=== PATIENT | female | born 2000 | race Hispanic/Latino ===

== ENCOUNTER 2020-10-06 09:49 | Outpatient (CLI) | payer OTHER, SELFPAY ==
[2020-10-06 10:33] LABS: Basophils Percent Auto 0.4 % (0.2-1.2); Eosinophils Percent Auto 0.4 % (0-4.4); Hematocrit 37.5 % (37.0-47.0); Hemoglobin 13.1 g/dL (12.0-15.0); Immature Granulocyte Absolute 0.03 K/mm3 (0.00-0.031); Immature Granulocyte Percent A 0.4 % (0-0.5); Lymphocytes Absolute Auto 1.31 K/mm3 (0.9-3.2); Lymphocytes Percent Auto 16.4 % (18.3-44.2); Mean Corpuscular HGB Conc 34.9 g/dl (32-36); Mean Corpuscular Hemoglobin 30.7 pg (26-34); Mean Corpuscular Volume 87.8 fl (80-100); Mean Platelet Volume 10.7 fl (7.4-10.4); Monocytes Absolute Auto 0.5 K/mm3 (0.1-0.6); Monocytes Percent Auto 6.8 % (2.6-8.5); Neutrophils Absolute Auto 6.1 K/mm3 (1.3-6.7); Neutrophils Percent Auto 75.6 % (45.5-73.1); Platelet Count Result 200 k/mm3 (150-375); Red Blood Count 4.27 M/mm3 (4.2-5.4); Red Cell Distribution Width 13.5 % (11.5-14.5)
[2020-10-06 11:25] LABS: HIV 1/2 Ab P24 Ag Result Negative (Negative); Hemoglobin A1C 4.9 % (<5.7)
[2020-10-06 11:56] LABS: Hepatitis B Surface Antigen Negative (Negative); Rubella IgG Antibody 2.3 IU/ML
[2020-10-06 12:05] LABS: Hepatitis C Virus Antibody Negative (Negative)
[2020-10-07 11:36] LABS: Rapid Plasma Reagin Non-Reactive (NonReactive)
== END 2020-10-06 09:50 | disposition home or self-care (01) ==
PROVIDERS: Visit Provider Obstetrics & Gynecology
DX: Z36.89 Encounter for other specified antenatal screening (principal); Z3A.00 Weeks of gestation of pregnancy not specified
CPT/HCPCS: 36415; 83036; 85025; 86592; 86703; 86762; 86803; 86850; 86900; 86901; 87340; G0432

== ENCOUNTER 2021-01-29 03:13 | Observation (INO) | payer OTHER, SELFPAY ==
[2021-01-29 03:01] VITALS: BP 99/60; PULSE 73; RESP 18; TEMP 36.2; O2SAT 100
--- NOTE | 2021-01-29 03:13 | PC.NURSE ---
Patient sent to OB via wheelchair
[2021-01-29 03:26] VITALS: BP 95/53; PULSE 82
[2021-01-29 03:30] VITALS: BP 94/45; PULSE 74
[2021-01-29 03:35] VITALS: RESP 18; TEMP 36.6
[2021-01-29 04:00] VITALS: BP 91/48; PULSE 76
[2021-01-29 04:10] VITALS: BMI 28.4
--- NOTE | 2021-01-29 04:10 | OBADM ---
This patient, Asiya Sullivan, admitted to the OB room [facility] for observation. Patient/family oriented to hospital policies and general routines including ID bracelet, bed and alarms, visiting hours, pain management, procedures, bathroom and other care routines, personal items, smoking policy, room service/diet, and visiting hours. Patient/Family are encouraged to report perceived risks to care and to ask questions if they do not understand what they are told or what they should do.
[2021-01-29 04:16] LABS: Add Urine Microscopic? YES; Appearance Urine Cloudy (Clear); Bacteria Urine Trace /hpf; Bilirubin Urine Negative (Negative); Blood Urine Negative (Negative); Color Urine Yellow (Yellow); Glucose Urine UA Negative (Negative); Ketones Urine Negative (Negative); Leukocyte Esterase Ur Negative LEU/UL (Negative); Mucus Urine Rare /lpf; Nitrate Urine Negative (Negative); Protein Urine Negative (Negative); Specific Grav Ur 1.015 (1.001-1.035); Squamous Epithelial Cell Urine Many /hpf (Few); Urobilinogen Urine Negative mg/dL (<2.0)
[2021-01-29 04:30] VITALS: BP 89/51; PULSE 79
--- NOTE | 2021-02-20 10:14 | P.PNOB_ITS ---
OB - Triage/Final Diagnosis Visit Information Comments/Additional reasons for admission: I have assessed the risk for this patient, Asiya Sullivan, and determined that she would benefit from observation care. Evaluation Laboratory results: Laboratory Tests 01/29/21 04:00 Urine Color Yellow Urine Appearance Cloudy H Urine pH 7.0 Ur Specific [place] 1.015 Urine Protein Negative Urine Glucose (UA) Negative Urine Ketones Negative Ur Blood (Man) Negative Urine Nitrate Negative Urine Bilirubin Negative Urine Urobilinogen Negative Leukocyte Esterase Rfl Negative Urine RBC 3-5 H Urine WBC 4-6 H Ur Squamous Epith Cells Many H Urine Bacteria Trace Urine Mucus Rare Final Diagnosis (1) Abdominal pain: Code(s): R10.9 - Unspecified abdominal pain Status: Acute
== END 2021-01-29 05:00 | disposition home or self-care (01) ==
PROVIDERS: Admitting Provider Obstetrics & Gynecology; Visit Provider Obstetrics & Gynecology
DX: O26.893 Other specified pregnancy related conditions, third trimester (principal); R10.9 Unspecified abdominal pain; Z3A.30 30 weeks gestation of pregnancy
CPT/HCPCS: 81001; G0378; G0379

== ENCOUNTER 2021-03-11 20:26 | Observation (INO) | payer OTHER, SELFPAY ==
[2021-03-11 22:44] VITALS: BMI 30.4
--- NOTE | 2021-03-11 22:44 | LDADM ---
This patient, Asiya Sullivan, was admitted to Labor/Delivery/Recovery 105 on 03/11/21 at 20:26. Plans for labor, pain management and were discussed with patient. Patient/family oriented to hospital policies and general routines including ID bracelet, bed and alarms, visiting hours, pain management, procedures, bathroom and other care routines, personal items, smoking policy, room service/diet and guest tray routines, security routines, and visiting hours. Patient/Family are encouraged to report perceived risks to care and to ask questions if they do not understand what they are told or what they should do. See OBIX for further documentation.
[2021-03-11 22:50] VITALS: PULSE 72
--- NOTE | 2021-03-11 23:15 | PC.NURSE ---
2025- pt came in through ER c/o cramping in abdomen and lower back pain. transferred to L&D for eval . 2039- initial cervical exam -closed/posterior. pt states that she feels like her belly tightens and then relaxes but with no pain. states that she has only drank about 20 ounces on water today and has been outside alot. PO hydration recommended. 2229- recheck of cervix- closed/posterior. pt states that she doesn't feel the contractions/tightening since drinking 4 cups of water and would like to d/c home. 2235- called Dr. Marie to inform of pt admission. informed that pt came in c/o cramping and lower back pain. PO hydration while here. SVE-closed/posterior. no further c/o cramping or back pain. order received to d/c home with instructions on when to return to L&D.
--- NOTE | 2021-04-01 21:00 | PM.OBTRLD ---
OB - Triage/Final Diagnosis Visit Information Comments/Additional reasons for admission: I have assessed the risk for this patient, Asiya Sullivan, and determined that she would benefit from observation care. Final Diagnosis (1) False labor: Code(s): O47.9 - False labor, unspecified Status: Acute
== END 2021-03-11 22:55 | disposition still patient (30) ==
PROVIDERS: Admitting Provider Obstetrics & Gynecology; Visit Provider Obstetrics & Gynecology
DX: O47.9 False labor, unspecified (principal); Z3A.00 Weeks of gestation of pregnancy not specified
CPT/HCPCS: 59025; G0378; G0379

== ENCOUNTER 2021-04-09 06:00 | Inpatient (IN) | payer OTHER, SELFPAY ==
[2021-04-09] VITALS (123 sets, daily range): BP systolic 100–194; BP diastolic 49–171; PULSE 56–164; RESP 16–18; TEMP 36.6–37.1; O2SAT 98–100; BMI 32.2
--- NOTE | 2021-04-09 06:00 | LDADM ---
This patient, Asiya Sullivan, was admitted to Labor/Delivery/Recovery 102 on 04/09/21 at 06:00. Plans for labor, pain management and were discussed with patient. Patient/family oriented to hospital policies and general routines including ID bracelet, bed and alarms, visiting hours, pain management, procedures, bathroom and other care routines, personal items, smoking policy, room service/diet and guest tray routines, security routines, and visiting hours. Patient/Family are encouraged to report perceived risks to care and to ask questions if they do not understand what they are told or what they should do. See OBIX for further documentation.
[2021-04-09 06:58] LABS: Basophils Absolute Auto 0.1 K/mm3 (0.0-0.1); Basophils Percent Auto 0.7 % (0.2-1.2); Eosinophils Absolute Auto 0.1 K/mm3 (0-0.3); Eosinophils Percent Auto 0.9 % (0-4.4); Hematocrit 28.7 % (37.0-47.0); Hemoglobin 8.7 g/dL (12.0-15.0); Immature Granulocyte Absolute 0.04 K/mm3 (0.00-0.031); Immature Granulocyte Percent A 0.6 % (0-0.5); Immature Platelet Fraction Pct 9.1 % (0.9-11.2); Lymphocytes Percent Auto 28.6 % (18.3-44.2); Mean Corpuscular HGB Conc 30.3 g/dl (32-36); Mean Corpuscular Hemoglobin 23.4 pg (26-34); Mean Corpuscular Volume 77.2 fl (80-100); Mean Platelet Volume 12.1 fl (7.4-10.4); Monocytes Absolute Auto 0.6 K/mm3 (0.1-0.6); Monocytes Percent Auto 9.1 % (2.6-8.5); Neutrophils Absolute Auto 4.2 K/mm3 (1.3-6.7); Neutrophils Percent Auto 60.1 % (45.5-73.1); Nucleated Red Blood Cells Perc 0.4 % (0.0-0.2); Platelet Count Result 206 k/mm3 (150-375); Red Blood Count 3.72 M/mm3 (4.2-5.4); Red Cell Distribution Width 17.7 % (11.5-14.5)
[2021-04-09] MEDS: OXYTOCIN 30 UNITS/NS 500 ML 30 UNITS/500 ML BAG 6 UNITS IV CONT (07:03)
[2021-04-09] MEDS: LACTATED RINGERS 1,000 ML 125 ML IV CONT ×2 (07:04→11:38)
--- NOTE | 2021-04-09 07:23 | WPDOBADMIT ---
Obstetrics - Admit Note Admission Note: record reviewed. No pertinent additions to the history and/or any subsequent changes in the physical findings that are not consistent with the expected course of the were found.Elevated uric acid and PCR, asymptomatic and bp normotensive, SVE 1-2/80/-2, AROM minimal amount of clear odorless fluid Additions to the history and/or subsequent changes in the physical findings follow. None.
[2021-04-09 10:28] LABS: Rapid Plasma Reagin Non-Reactive (NonReactive)
--- NOTE | 2021-04-09 10:38 | WPDANESEPP ---
Anes - Eval Pre Procedure Procedure: Labor epidural Date/Time: 04/09/21 10:38 Surgeon: Moustapha Preop Diagnosis: Abd pain with contractions Pre Op Diagnosis: Induction of Labor Patient Data Age: 20 Gender: F Height: 1.57 m Weight: 80 kg Last Vital Signs Temp 97.9 F 04/09/21 09:30 Pulse 62 04/09/21 10:30 BP 122/73 04/09/21 10:30 Allergies Allergy/AdvReac Type Severity Reaction Status Date / Time No Known Allergies Allergy Verified 03/22/21 15:01 Home Medications Medication Instructions Recorded Confirmed Type prenat.vits,marlon,gyx-yejg-wwbht 1 tablet PO DAILY 03/22/21 04/09/21 History [ #2] Laboratory Tests 04/09/21 04/09/21 04/09/21 06:49 06:49 06:49 WBC 7.0 K/mm3 K/mm3 (4.5-10.0) RBC 3.72 M/mm3 L M/mm3 (4.2-5.4) Hgb 8.7 g/dL L D g/dL (12.0-15.0) Hct 28.7 % L % (37.0-47.0) MCV 77.2 fl L fl (80-100) MCH 23.4 pg L pg (26-34) MCHC 30.3 g/dl L g/dl (32-36) RDW 17.7 % H % (11.5-14.5) Plt Count 206 k/mm3 k/mm3 (150-375) MPV 12.1 fl H fl (7.4-10.4) Immature Gran % (Auto) 0.6 % H % (0-0.5) Neut % (Auto) 60.1 % % (45.5-73.1) Lymph % (Auto) 28.6 % % (18.3-44.2) Barton % (Auto) 9.1 % H % (2.6-8.5) Eos % (Auto) 0.9 % % (0-4.4) Baso % (Auto) 0.7 % % (0.2-1.2) Lymph # (Auto) 2.00 K/mm3 K/mm3 (0.9-3.2) Barton # (Auto) 0.6 K/mm3 K/mm3 (0.1-0.6) Eos # (Auto) 0.1 K/mm3 K/mm3 (0-0.3) Baso # (Auto) 0.1 K/mm3 K/mm3 (0.0-0.1) Abs Immat Gran (auto) 0.04 K/mm3 H K/mm3 (0.00-0.031) Absolute Neuts (auto) 4.2 K/mm3 K/mm3 (1.3-6.7) Absolute Nucleated RBC 0.0 K/mm3 K/mm3 (0.0-0.012) Nucleated RBC % 0.4 % H % (0.0-0.2) % Immature Plt Fraction 9.1 % % (0.9-11.2) RPR Non-reactive (NonReactive) Blood Type O Positive Antibody Screen Negative Patient hx anesthesia problems: none Family hx anesthesia problems: none PMFSH Past Medical History Medical History Overweight (BMI 25.0-29.9) and not yet delivered Family History Family History Other No pertinent family history Social History Social History Smoking status: Never smoker Substance use: never Spiritual care concerns: No Exam Day of Procedure 04/09/21 10:38 Patient weight: overweight Airway: Mallampati scale class II Neurological: alert and oriented
[2021-04-09] MEDS: miSOPROStol 200 MCG TABLET 1000 MCG (16:35)
[2021-04-09] MEDS: CARBOPROST TROMETHAMINE 250 MCG/ML AMPUL IM (16:48)
--- NOTE | 2021-04-09 16:56 | P.PCNOB_ITS ---
OB - Delivery Note Procedure Delivery date: 04/09/21 Procedure: vaginal delivery events: Induced HTN, Labor Induction and Meconium Stained Fluid Intrapartal events: None Induction method: AROM and per pitocin protocol Delivery monitor: external FHT, external uterine and internal uterine Route of delivery: Laceration Description: Vaginal - 1st Degree Delivery repair: vicryl Specimen: Yes Quantitative Blood Loss (ml): 810 Anesthesia type: Epidural Disposition: floor Baby Date of : 04/09/21 Time of : 16:28 Weeks of gestation at delivery: 40 Infant gender: Male Weight (pounds): 7 Weight (ounces): 10 presentation: vertex position: Right Occiput Anterior Placenta delivery description: Spontaneous cord vessel description: 3 Vessels, Nuchal Cord, Loose, Reduced and Clamped/Cut score one minute: 9 score five minutes: 9 Narrative: baby to warmer due to meconium, diesel mechanic helper present. bleeding slow and steady after placenta delivery, fundus boggy, cytotec, and hemabate given fundus then firm at umbilicus. vaginal pack for vaginal laceration
[2021-04-09] MEDS: OXYTOCIN 30 UNITS/NS 500 ML 30 UNITS/500 ML BAG 125 UNITS IV CONT (17:01)
[2021-04-09] MEDS: ceFAZolin 2 GM/D5W 50 ML 2 GM/50 ML BAG IVPB (17:01)
[2021-04-09] MEDS: BENZOCAINE 20% AER SPR (*SP) 56 GM CAN 1 SPRAY TOPICAL (17:33)
[2021-04-09] MEDS: IBUPROFEN 600 MG TABLET PO (17:33)
[2021-04-09] MEDS: DIPHENOXYLATE/ATROPINE (*CRX) 2.5 MG TABLET 2 TABLET PO (17:33)
[2021-04-09] MEDS: WITCH HAZEL 40 PADS 1 PAD TOPICAL (17:33)
--- NOTE | 2021-04-09 21:38 | PC.NURSE ---
Kristine Jon updated on pt. Vag packing removed. No other new orders at this time.
[2021-04-10] VITALS (13 sets, daily range): BP systolic 94–125; BP diastolic 51–78; PULSE 71–91; RESP 16–20; TEMP 36.3–37.1; O2SAT 98–100
[2021-04-10 04:12] LABS: Hematocrit 18.9 % (37.0-47.0); Hemoglobin 5.7 g/dL (12.0-15.0)
[2021-04-10] MEDS: SODIUM CHLORIDE 0.9% IV 250 ML 30 ML IV CONT (05:28)
[2021-04-10] MEDS: DOCUSATE SODIUM 100 MG CAPSULE PO ×2 (09:07→16:48)
[2021-04-10] MEDS: MULTIVIT/MIN/PREN/FOL AC/IRON TABLET 1 TAB PO (09:07)
[2021-04-10] MEDS: IBUPROFEN 600 MG TABLET PO ×2 (09:08→16:48)
[2021-04-10] MEDS: POLYSACCHARIDE IRON COMPLEX 150 MG CAPSULE PO ×2 (09:08→16:49)
--- NOTE | 2021-04-10 10:40 | PM.OBPNVD ---
OB - PN: Subj Subjective Date/time seen: 04/10/21 10:40 Patient comments: no complaints baby status: doing well OB - PN: Obj Data Labs CBC & Chem 7: 04/10/21 03:19 Labs: Laboratory Results - last 24 hr 04/09/21 04/10/21 06:49 03:19 Hgb 5.7 L* D Hct 18.9 L* Blood Type O Positive Antibody Screen Negative Crossmatch See Detail OB - PN A/P Time Spent With Patient Time: Total time spent is greater than 50% in coordination of care (as documented) at patient's floor/unit and/or counseling patient: Review of Systems Review of Systems: All systems reviewed & are unremarkable except as noted in HPI and below Exam Const: General: cooperative Psych: Appearance: grossly normal Affect: normal affect Attitude: cooperative Thought process: Normal thought process present Thought content: Yes Normal thought content present Insight: Good insight present (Psych) Judgement: Good judgement present (Psych)
--- NOTE | 2021-04-10 14:43 | WPDANLDPN2 ---
Anes-Prog Note L&D Date/Time: 04/10/21 14:43 Comfortable throughout: labor Neuraxial method: epidural Epidural/Spinal procedure site: clean & non-tender Neuro status: Neuro function grossly intact. Cardiovascular status: normal Respiratory status: normal Airway patency: baseline Mental status: baseline Post-Op hydration status: normal Vital Signs: Last Vital Signs Temp 36.8 C 04/10/21 12:50 Pulse 71 04/10/21 12:50 Resp 18 04/10/21 12:50 BP 94/51 L 04/10/21 12:50 Pulse Ox 98 04/10/21 11:40 Pain score (VAS): 0 I/O: Intake & Output 04/09/21 04/10/21 04/10/21 23:59 07:59 15:59 Intake Total 1000 0 650 Output Total 1900 Balance -900 0 650 Post-procedural complaints: none Patient feedback: Patient satisfied with anesthetic care.
[2021-04-10 17:04] LABS: Hematocrit 25.4 % (37.0-47.0); Hemoglobin 7.9 g/dL (12.0-15.0)
[2021-04-11 05:48] LABS: Hematocrit 24.2 % (37.0-47.0); Hemoglobin 7.5 g/dL (12.0-15.0)
[2021-04-11 07:59] VITALS: BP 122/73; PULSE 72; RESP 16; TEMP 36.9; O2SAT 97
[2021-04-11] MEDS: DOCUSATE SODIUM 100 MG CAPSULE PO (08:39)
[2021-04-11] MEDS: MULTIVIT/MIN/PREN/FOL AC/IRON TABLET 1 TAB PO (08:39)
[2021-04-11] MEDS: POLYSACCHARIDE IRON COMPLEX 150 MG CAPSULE PO (08:39)
[2021-04-11] MEDS: IBUPROFEN 600 MG TABLET PO (08:39)
[2021-04-11] MEDS: MEASLES,MUMPS,RUBELLA VACCINE 0.5 ML VIAL SUB-Q (08:40)
--- NOTE | 2021-04-11 10:30 | PC.NURSE ---
Patient viewed the discharge video Mother & Baby Care, The First Two Weeks . Patient was given the opportunity and encouraged to ask questions. Patient verbalized understanding of information shared and has been given the mother/baby guide for home reference.
--- NOTE | 2021-04-11 10:35 | PM.OBDSVD ---
DS: Admitting Diagnosis Admitting Diagnosis MIL, HTN OB - DS: Summary OB Procedures : None OB Procedures Intrapartum: Spontaneous Vag Delivery OB Procedures: : Transfusion Time Spent with Patient Time attestation: Total time spent providing and/or coordinating discharge services: DS: Data Data Completed and Pending Pending studies at discharge: Pending at discharge 04/09/21 16:30 Surgical [PTH] Routine Labs on day of discharge: Labs from last 24 hours 04/11/21 04/10/21 04/09/21 05:10 16:57 06:49 Hgb 7.5 L 7.9 L Hct 24.2 L 25.4 L Crossmatch See Detail Discharge Plan Discharge Attending physician on discharge: Mckay Marie Discharging Clinician: Seda Jon Patient Disposition: Home, Self-Care Activity: pelvic rest Diet: regular Discharge Instructions: Education: Mom and Baby Guide and Preeclampsia Handout Given to: Mother Follow-Up: Call your delivering provider's office for an appointment to be seen in: 4 Weeks Mom and baby should come to the [facility] for the follow-up appointment. Appointment Date/Time: April 14, 2021 at 2:30 pm What to expect at your follow-up visit: Physical Assessment Call [phone] if you are unable to keep your appointment time. BREAST CARE: * Wear a snug supportive bra. * For engorgement discomfort: Breast Feeding: * Apply warm moist washcloths * Express milk as needed to relieve engorgement * Wear loose clothing Bottle Feeding: * May apply ice packs * For sore nipples: * Identify correct latch-on * Apply warm moist washcloths before and after nursing * Air dry nipples after nursing * May apply Lansinoh cream to nipples EPISIOTOMY/PERINEAL CARE: * Until bleeding stops, use your mora bottle after urinating * Change your pad frequently throughout the day * You may take sitz baths several times a day (fill your bathtub with warm water and soak for 20 minutes.) Do NOT bathe in the water * No tub baths until seen by your physician - You may shower ACTIVITY: * Rest as much as possible. * Do not exercise or lift anything heavier than your baby (such as laundry or other children.) * Avoid stairs or driving as much as possible. * Do not put anything into the vagina. No douching, tampons, or sexual activity until seen by physician. NOTIFY PHYSICIAN IF YOU HAVE ANY QUESTIONS OR IF ANY OF THE FOLLOWING SYMPTOMS OCCUR: * If your episiotomy or stitches becomes red, swollen, or more painful than what you have experienced in the hospital. * If your vaginal bleeding becomes foul smelling. * If your vaginal bleeding becomes more heavy than a period or if your bleeding changes from pink to bright red. However, you may pass an occasional walnut-sized clot once or twice for the first week . * If you experience a sharp, shooting pain in you calves. * If you discover a hard, reddened area on your breast or if you experience flu-like symptoms. DIET: * Eat regular, well-balanced meals. * Drink plenty of fluids daily. If , drink to thirst. Patient Instructions: Antibiotic Form Stand Alone Forms: General Discharge Information Follow-up/Referrals: Seda Jon CNM [Certified Nurse Business Integration Manager] - 4 Weeks Discharge Medications: No Action #2 Tablet 1 tablet PO DAILY RF: 0 Date of admission: 04/09/21 06:00 Primary Care Provider: PHYSICIAN,PIN WORKER Admitting Provider: Mckay Marie Attending physician on admission: Mckay Marie Condition: Stable
--- NOTE | 2021-04-11 10:35 | PM.OBPNVD ---
OB - PN: Subj Subjective Date/time seen: 04/11/21 10:35 pt doing well after blood transfusion, labs stable, bleeding minimal, would like to go home OB - PN: Obj Data Labs CBC & Chem 7: 04/11/21 05:10 Labs: Laboratory Results - last 24 hr 04/09/21 04/10/21 04/11/21 06:49 16:57 05:10 Hgb 7.9 L 7.5 L Hct 25.4 L 24.2 L Crossmatch See Detail OB - PN A/P Plan day: 2 Plan: routine care and discharge home Comments: continue iron supplementation, precautions reviewed Time Spent With Patient Time: Total time spent is greater than 50% in coordination of care (as documented) at patient's floor/unit and/or counseling patient: Review of Systems Review of Systems: All systems reviewed & are unremarkable except as noted in HPI and below Exam Const: General: cooperative and healthy appearing Skin: General skin exam: normal color Neuro: Speech: normal speech Extrem: General: normal to inspection Psych: Affect: normal affect Thought process: Normal thought process present Judgement: Good judgement present (Psych)
[2021-04-14 15:25] VITALS: BP 129/60; PULSE 81; RESP 20; TEMP 37.3; O2SAT 99
== END 2021-04-11 13:26 | disposition home or self-care (01) | DRG 560 ==
LOC: ANHLDR 07:41 → ANHOBPP 22:02 → ANHOB2 04-10 00:47
PROVIDERS: Advanced Practice Midwife; Admitting Provider Obstetrics & Gynecology; Visit Provider Obstetrics & Gynecology
DX: O13.4 Gestational [pregnancy-induced] hypertension without significant proteinuria, complicating childbirth (principal); O77.0 Labor and delivery complicated by meconium in amniotic fluid; Z3A.40 40 weeks gestation of pregnancy; Z37.0 Single live birth; O69.81X0 Labor and delivery complicated by cord around neck, without compression, not applicable or unspecified; O70.0 First degree perineal laceration during delivery
CPT/HCPCS: 36415; 36430; 85014; 85018; 85025; 85055; 86592; 86850; 86900; 86901; 86920; 88307; 90710; A9270; J0690; J2590; J2795; J7050; J7120; P9016